=== PATIENT | male | born 1975 | race Caucasian/White ===

== ENCOUNTER 2021-02-16 11:47 | Day surgery (SDC) | payer OTHER ==
[2021-02-13 15:28] LABS: ALANINE AMINOTRANSFERASE 45 U/L (12-78); ALBUMIN 3.9 g/dL (3.4-5.0); ANION GAP 5 mmol/L (5-15); CHLORIDE 109 mmol/L (98-107); CREATININE 1.02 mg/dL (0.7-1.3)
[2021-02-13 15:31] LABS: ALKALINE PHOSPHATASE 61 U/L (45-117); BILIRUBIN,TOTAL 0.6 mg/dL (0.2-1.0); TOTAL PROTEIN 7.2 g/dL (6.4-8.2)
[2021-02-13 15:34] LABS: BASOPHILS % (AUTO) 1 % (0-1); EOSINOPHILS % (AUTO) 2 % (1-7); LYMPHOCYTES % (AUTO) 25 % (22-44); MEAN CORPUSCULAR HEMOGLOBIN 33.8 pg (27.5-34.5); MEAN CORPUSCULAR HGB CONC 35.1 g/dL (33.2-36.2); MEAN PLATELET VOLUME 7.9 fL (7.4-10.4); MONOCYTES % (AUTO) 6 % (2-9); NEUTROPHILS % (AUTO) 66 % (42-75); PLATELET COUNT 249 x10^3/uL (130-400); RED BLOOD COUNT 4.68 x10^6/uL (4.38-5.82); RED CELL DISTRIBUTION WIDTH 12.4 % (9.4-14.8)
[2021-02-13 15:44] LABS: INTERNATIONAL NORMALIZED RATIO 1.07 (0.93-1.1); PROTHROMBIN TIME 11.4 Seconds (9.6-11.5)
[~2021-02-16] VITALS: Ht 182.9 cm; Wt 103.0 kg
[~2021-02-16 11:47] MED LIST: IBUP1TAB11 PO
[2021-02-16 12:09] VITALS: BP 119/79
[2021-02-16] MEDS ORDERED: CHLORHEXIDINE 15 ML UDC ONE (12:17)
[2021-02-16] MEDS ORDERED: CHLORHEXIDINE 15 ML UDC PO ONE (12:30)
[2021-02-16] MEDS ORDERED: LACTATED RINGERS 1,000 ML IV SCH (12:30)
[2021-02-16] MEDS ORDERED: FENTANYL PF 250 MCG/5ML ONE (13:19)
[2021-02-16] MEDS ORDERED: MIDAZOLAM 1 MG/ML, 2ML ONE (13:19)
[2021-02-16] MEDS ORDERED: BUPIVACAINE/PF 0.5% ONE (13:29)
[2021-02-16] MEDS ORDERED: EPINEPHRINE 1 MG/ML, 1ML ONE (13:29)
[2021-02-16] MEDS ORDERED: DEXAMETHASONE 4 MG/ML, 1ML ONE ×2 (13:52)
[2021-02-16] MEDS ORDERED: CEFAZOLIN 1,000 MG ONE ×2 (13:53→14:07)
[2021-02-16] MEDS ORDERED: ACETAMINOPHEN 325 MG TABLET PO PRN (14:00)
[2021-02-16] MEDS ORDERED: HYDROmorphone 1 MG/ML, 1ML INJ IVPush PRN (14:00)
[2021-02-16] MEDS ORDERED: PROMETHAZINE 25 MG/ML, 1ML IVPush PRN (14:00)
[2021-02-16] MEDS ORDERED: FENTANYL PF 100 MCG/2ML IV PRN (14:00)
[2021-02-16] MEDS ORDERED: ONDANSETRON 2MG/ML, 2ML IVPush PRN (14:00)
[2021-02-16] MEDS ORDERED: LABETALOL 5MG/ML, 20ML IV PRN (14:00)
[2021-02-16] MEDS ORDERED: hydrALAzine 20 MG/ML, 1ML IV PRN (14:00)
[2021-02-16] MEDS ORDERED: OXYcodone 5 MG/5 ML ORAL.SOL UDC PO PRN (14:00)
[2021-02-16] MEDS ORDERED: MEPERIDINE/PF 25MG/0.5ML IVPush PRN (14:00)
[2021-02-16] MEDS ORDERED: KETOROLAC 30 MG/1 ML ONE (14:07)
[2021-02-16] MEDS ORDERED: ROCURONIUM 10MG/ML,5ML ONE (14:07)
[2021-02-16] MEDS ORDERED: PROPOFOL 10 MG/ML, 20ML ONE (14:07)
[2021-02-16] MEDS ORDERED: GLYCOPYRROLATE 0.2MG/1ML, 5ML ONE (15:09)
[2021-02-16] MEDS ORDERED: NEOSTIGMINE 1 MG/ML, 10ML ONE (15:09)
[2021-02-16] MEDS ORDERED: HYDR-2214 PO (16:01)
== END 2021-02-16 17:30 | disposition home or self-care (01) ==
LOC: OUT 11:47
PROVIDERS: ATTEND Surgery
DX: K40.20 Bilateral inguinal hernia, without obstruction or gangrene, not specified as recurrent (principal); F17.210 Nicotine dependence, cigarettes, uncomplicated; Z20.822 Contact with and (suspected) exposure to COVID-19; Z90.49 Acquired absence of other specified parts of digestive tract; Z98.890 Other specified postprocedural states; Z79.899 Other long term (current) drug therapy; Z72.89 Other problems related to lifestyle
CPT/HCPCS: 36415; 49650; 80053; 85025; 85610; 87635; 93005; C1781; J0171; J0690; J1100; J1885; J2250; J2704; J2710; J3010; J7120; S2900; U0003; U0005